=== PATIENT | female | born 2000 | race Hispanic/Latino ===

== ENCOUNTER 2020-03-03 12:38 | Inpatient (IN) | payer MEDICAID, SELFPAY ==
--- NOTE | 2020-03-03 14:16 | RAD REPORT ---
EXAM DESCRIPTION: CT - Head Brain Wo Cont - 03/03/2020 2:11 pm CLINICAL HISTORY: concussion 1 week ago;Seizure COMPARISON: No comparisons TECHNIQUE: Axial 5 mm thick images of the head were obtained without IV contrast. All CT scans are performed using dose optimization technique as appropriate and may include automated exposure control or mA/KV adjustment according to patient size. FINDINGS: No intracranial hemorrhage, mass, edema or shift of mid-line structures. No acute infarcti on changes seen. No abnormal extra-axial fluid collections. Ventricles are normal. Mastoid air cells and visualized portions of the paranasal sinuses are clear. No acute bony findings. IMPRESSION: Negative non-contrast CT head examination.
[2020-03-03 14:30] LABS: Absolute Lymphocytes (CBC) 1.2 K/uL (0.7-4.9); Basophils % 0.7 % (0-1.3); Hematocrit 38.4 % (36.0-45.0); Lymphocytes % 19.2 % (15.3-44.8); MPV 9.2 fL (7.6-11.3); RBC Red Blood Cell Count 4.28 M/uL (3.86-4.86)
[2020-03-03 14:35] LABS: Protime INR 1.12
[2020-03-03] MEDS ORDERED: ACETAMINOPHEN 500 MG TAB ONE (14:42)
[2020-03-03] MEDS ORDERED: NA CHLORIDE 0.9% 1,000 ML ONE (14:43)
[2020-03-03 14:58] LABS: ALT/SGPT 17 U/L (12-78); AST/SGOT 7 U/L (15-37); Albumin 4.5 g/dL (3.4-5.0); Alkaline Phosphatase 69 U/L (45-117); BUN Blood Urea Nitrogen 8 mg/dL (7-18); Bicarbonate 23 mmol/L (21-32); Bilirubin Direct < 0.1 mg/dL (0-0.2); Bilirubin Total 0.3 mg/dL (0.2-1.0); Glucose Level 86 mg/dL (74-106); Potassium 3.7 mmol/L (3.5-5.1); Sodium Level 139 mmol/L (136-145)
[2020-03-03 15:26] LABS: Urine Blood 1+ (NEG); Urine Glucose NEGATIVE (NEG); Urine Protein NEGATIVE (NEG); Urine Specific Gravity >1.030 (1.005-1.030); Urine pH 5.5 (5.0-7.0)
[2020-03-03 15:35] LABS: Barbiturates NEGATIVE (NEGATIVE); Benzodiazepines NEGATIVE (NEGATIVE); Cocaine NEGATIVE (NEGATIVE); METHAMPHETAM NEGATIVE (NEGATIVE); Methadone NEGATIVE (NEGATIVE); Opiates NEGATIVE (NEGATIVE); Phencyclidine NEGATIVE (NEGATIVE); THC Cannibis POSITIVE (NEGATIVE)
[2020-03-03] MEDS ORDERED: ACETAMINOPHEN 500 MG TAB PO PRN (15:45)
[2020-03-03] MEDS ORDERED: LEVETIRACETAM 500 MG/5 ML VIAL IV ONE (16:08)
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
[2020-03-03] MEDS ORDERED: LORazepam 2 MG/ML VIAL ONE (16:32)
[2020-03-03] MEDS ORDERED: levETIRAcetam 1,000 MG in NA CHLORIDE 0.9% 100 ML IV ONE (16:45)
--- NOTE | 2020-03-03 18:29 | RAD REPORT ---
EXAM DESCRIPTION: MRI - Brain Wo Cont - 03/03/2020 6:22 pm CLINICAL HISTORY: seizure COMPARISON: Head Brain Wo Cont dated 03/03/2020 TECHNIQUE: Sagittal T1-weighted images were obtained along with axial PD, heavily T2-weighted and T2 -FLAIR images. Axial DWI and ADC mapping sequences were also obtained along with coronal T1 weighted and heavily T2 weighted images. FINDINGS: No intracranial hemorrhage, mass or acute infarction. There is no edema or shift of midlin e structures. No extra-axial fluid collections. Almeida-matter/white matter junction is preserved. Signa l voids are seen as a normal finding in the major intracranial vessels. No contusion or shear injury findings. No medial temporal lobe asymmetry. Globes and orbital contents within normal limits. Asymmetry of the terminates is a normal variant. Mastoid air cells and paranasal sinuses are clear. IMPRESSION: Negative non-contrast MRI of the Brain.
[2020-03-03 18:30] VITALS: BMI 22.1
[2020-03-03] MEDS: NA CHLORIDE 0.9% 1,000 ML IV SCH (18:44)
[2020-03-03] MEDS: levETIRAcetam 500 MG in NA CHLORIDE 0.9% 100 ML IV SCH (19:54)
[2020-03-04] MEDS: NA CHLORIDE 0.9% 1,000 ML IV SCH ×3 (03:25→22:00)
[2020-03-04 05:44] LABS: Absolute Lymphocytes (CBC) 1.5 K/uL (0.7-4.9); Basophils % 0.8 % (0-1.3); Hematocrit 31.4 % (36.0-45.0); Lymphocytes % 28.8 % (15.3-44.8); MPV 9.1 fL (7.6-11.3); RBC Red Blood Cell Count 3.47 M/uL (3.86-4.86)
[2020-03-04 06:13] LABS: ALT/SGPT 13 U/L (12-78); AST/SGOT 7 U/L (15-37); Albumin 3.3 g/dL (3.4-5.0); Alkaline Phosphatase 51 U/L (45-117); BUN Blood Urea Nitrogen 4 mg/dL (7-18); Bicarbonate 22 mmol/L (21-32); Bilirubin Total 0.2 mg/dL (0.2-1.0); Glucose Level 78 mg/dL (74-106); Magnesium 2.1 mg/dL (1.8-2.4); Phosphorus 3.5 mg/dL (2.5-4.9); Potassium 3.8 mmol/L (3.5-5.1); Protein, Total 6.2 g/dL (6.4-8.2); Sodium Level 143 mmol/L (136-145)
[2020-03-04] MEDS ORDERED: LORazepam 2 MG/ML VIAL IV PRN (08:29)
[2020-03-04 08:54] LABS: Urine Appearance CLEAR; Urine Blood 3+ (NEG); Urine Color YELLOW; Urine Glucose NEGATIVE (NEG); Urine Protein NEGATIVE (NEG); Urine Specific Gravity 1.025 (1.005-1.030)
[2020-03-04 08:58] LABS: Urine Bilirubin NEGATIVE (NEG); Urine Microscopic Reflex ORDER UMIC
[2020-03-04] MEDS ORDERED: POTASSIUM CL SA 10 MEQ TAB PO ONE (09:00)
[2020-03-04 09:21] LABS: Urine Bacteria 20-50 /HPF (<20)
[2020-03-04 09:22] LABS: Urine Culture Reflex Order NOT NEEDED; Urine Mucus 2+ /HPF (NONE SEEN)
[2020-03-04] MEDS: levETIRAcetam 500 MG in NA CHLORIDE 0.9% 100 ML IV SCH ×2 (09:22→21:07)
[2020-03-04 09:27] VITALS: O2SAT 99
[2020-03-04] MEDS: CEFTRIAXONE/SWI 1gm 1 GM/10 ML SYR IV SCH (11:40)
[2020-03-04] MEDS: ONDANSETRON 4 MG/2 ML VIAL IV PRN ×2 (11:41→19:16)
--- NOTE | 2020-03-04 14:22 | PN ---
Date of Progress Note: 03/04/2020 Patient seen and examined. Chart reviewed and case discussed with RN. Patient had 2 episodes of seizures since this morning, 1 episode during my interview. patient became stiff and had rapid jerking movements without a classic crescendo decresendo. no post ictal confusion. Family at the bedside. All questions answered. Medications: List reviewed. Physical Examination: Vital Signs: Temperature 97.3, heart rate 88, blood pressure 120/81, respirations 18, O2 98% on room air. General: Awake, alert, oriented x3, in mild distress, ill-appearing female. CV: S1, S2. Regular rate and rhythm. Peripheral pulses present. Respiratory: Moving air well bilaterally. No wheezing or stridor. No use of accessory muscles. Gastrointestinal: Abdomen is soft, nontender, nondistended. Positive bowel sounds. Extremities: No clubbing, cyanosis, or edema. Neuro: Cranial nerves 2 through 12 intact grossly. No focal neurological deficit. Speech is normal. Skin: No rashes. Normal skin turgor. Laboratory Data: Sodium 142, potassium 3.8, chloride 114, CO2 of 22, BUN 4, creatinine 0.61, glucose 78, calcium 8.1, phosphorus 3.5, magnesium 2.1. CK level is 66. WBC 5.4, H and H 10.8 and 31.4, platelets 168. MRI of the brain negative. No contusion or shear injury finding. Assessment: A 19-year-old female with: 1. New-onset seizure disorder. possibly pseudo seizures given the nature of the episode as witnessed by me. Patient having multiple episodes, was given 1 g of Keppra loading dose, currently on 500 b.i.d. Add Ativan p.r.n. for breakthrough seizures. Continue seizure precautions. Dr. Parikh has been consulted. EEG has been done and patient had episode during EEG. We will follow up on the report. Likely due to head injury versus other. 2. History of concussion. 3. Substance abuse with marijuana, and other synthetic substances; counseled. 4. Acute cystitis with hematuria. We will start on empiric antibiotics. Follow up on cultures. 5. Deep vein thrombosis prophylaxis addressed. Likely discharge in the next 24 to 48 hours depending on clinical response. ADDENDUM: Reviewed EEG w dr. Parikh no epileptiform activity seen. patients episodes are likely pseudoseizures possibly due to secondary gain. consult psych SA/MODL Voice ID: [id number] Report ID: [id number] MTDD
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
[2020-03-05] MEDS: NA CHLORIDE 0.9% 1,000 ML IV SCH ×2 (02:34→08:00)
[2020-03-05 07:51] LABS: BUN Blood Urea Nitrogen 2 mg/dL (7-18); Bicarbonate 24 mmol/L (21-32); Glucose Level 73 mg/dL (74-106); Magnesium 2.1 mg/dL (1.8-2.4); Potassium 3.7 mmol/L (3.5-5.1); Sodium Level 145 mmol/L (136-145)
[2020-03-05] MEDS: levETIRAcetam 500 MG in NA CHLORIDE 0.9% 100 ML IV SCH (08:28)
[2020-03-05] MEDS: ONDANSETRON 4 MG/2 ML VIAL IV PRN (08:29)
[2020-03-05] MEDS: CEFTRIAXONE/SWI 1gm 1 GM/10 ML SYR IV SCH (08:29)
[2020-03-05 10:14] VITALS: BP 113/69; TEMP 98.1
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
[2020-03-05] MEDS ORDERED: POTASSIUM CL SA 10 MEQ TAB PO ONE (11:00)
--- NOTE | 2020-03-05 13:02 | EKG ---
Test Date: 2020-03-03 Test Time: 14:40:01 Manager Of Revenue: CHACHA MEASUREMENT RESULTS: Intervals: Rate: 59 VT: 142 QRSD: 66 QT: 416 QTc: 411 Egan: P: 81 VT: 142 QRS: 88 T: 74 INTERPRETIVE STATEMENTS: Sinus bradycardia with sinus arrhythmia Otherwise normal ECG No previous ECG available for comparison Electronically Signed On 03-05-20 13:01:02 CDT by Eleazar Navarro
--- NOTE | 2020-03-07 11:06 | EEG ---
CHART: [id number] TEST ID#: [id number] DATE OF STUDY: 03/04/2020 THE EEG WAS RECORDED PORTABLE IN THE PATIENT'S ROOM ON A 17 CHANNEL MACHINE. ELECTRODES WERE APPLIED IN THE USUAL MANNER USING THE INTERNATIONAL 10-20 SYSTEM. THE WAKING BACKGROUND RHYTHM IN THIS RECORD CONSISTS OF VERY WELL DEVELOPED AND WELL ORGANIZED WAVES OF 10 HZ., MAXIMAL IN THE POSTERIOR HEAD REGIONS WHICH ATTENUATE NORMALLY WITH EYE OPENING. LOW-VOLTAGE 18-22 HZ ACTIVITY IS EXPRESSED IN THE FRONTAL REGIONS. SHE HAD A WITNESSED SEIZURE-LIKE EVENT WITH NO EPILEPTIFORM ACTIVITY ACCOMPANIED THE EVENT. THERE ARE NO FOCAL OR LATERALIZING FEATURES. NO EPILEPTIFORM ACTIVITY APPEARS. SLEEP OCCURRED NATURALLY. IN ADDITION NORMAL SLEEP PATTERNS ARE PRSENT. HYPERVENTILATION WAS NOT PERFORMED. PHOTIC STIMULATION PRODUCED FAIR DRIVING BILATERALLY. IMPRESSION: NORMAL EEG FOR THE AGE OF THE PATIENT IN [place], DROWSINESS AND SLEEP. NO EPILEPTIFORM ACTIVITY OCCURRED DURING WITNESSED SEIZURE-LIKE EVENT. THEREFORE, THIS EVENT WAS NON-SPECIFIC.
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
== END 2020-03-05 11:05 | disposition home or self-care (01) | DRG 101 ==
LOC: ER 12:38 → ERHOLD 15:47 → 2ND 17:29
PROVIDERS: ADMIT Family Medicine; ATTEND Family Medicine
DX: G40.89 Other seizures (principal); N30.01 Acute cystitis with hematuria; F19.10 Other psychoactive substance abuse, uncomplicated; D64.9 Anemia, unspecified; F12.10 Cannabis abuse, uncomplicated; Z79.899 Other long term (current) drug therapy
CPT/HCPCS: 36415; 70450; 70551; 80048; 80053; 80076; 80307; 80320; 80329; 81003; 81015; 81025; 82550; 83605; 83735; 84100; 84443; 85025; 85610; 85730; 87077; 87086; 87088; 87186; 93005; 94760; 95816; 96374; 96375; 99285; J0696; J1953; J2405; J7030

== ENCOUNTER 2021-08-18 22:25 | Emergency (ER) | payer MEDICAID, SELFPAY ==
[2021-08-18] MEDS ORDERED: NA CHLORIDE 0.9% 1,000 ML ONE (22:54)
[2021-08-18] MEDS ORDERED: ONDANSETRON 4 MG/2 ML VIAL ONE (22:54)
[2021-08-18] MEDS ORDERED: FAMOTIDINE 20 MG/2 ML VIAL IV ONE (22:55)
[2021-08-18 23:17] LABS: Urine Blood Negative (Negative); Urine Glucose Negative (Negative); Urine Protein Trace (Negative); Urine pH 8.5 (5.0-7.0)
[2021-08-18 23:20] LABS: Absolute Lymphocytes (CBC) 1.7 K/uL (0.7-4.9); Basophils % 0.3 % (0-1.3); Hematocrit 36.3 % (36.0-45.0); Lymphocytes % 13.9 % (15.3-44.8); MPV 8.2 fL (7.6-11.3); RBC Red Blood Cell Count 3.83 M/uL (3.86-4.86)
[2021-08-18 23:47] LABS: Urine Amorphous Sediment 3+ /HPF (NONE SEEN); Urine Bacteria >50 /HPF (<20); Urine Mucus 1+ /HPF (NONE SEEN); Urine RBC <5 /HPF (NONE SEEN)
[2021-08-18 23:54] LABS: ALT/SGPT 17 U/L (12-78); AST/SGOT 12 U/L (15-37); Albumin 3.5 g/dL (3.4-5.0); Alkaline Phosphatase 53 U/L (45-117); BUN Blood Urea Nitrogen 4 mg/dL (7-18); Bicarbonate 24 mmol/L (21-32); Bilirubin Direct < 0.1 mg/dL (0-0.2); Bilirubin Total 0.3 mg/dL (0.2-1.0); Glucose Level 90 mg/dL (74-106); HCG, Quantitative 3773 mIU/mL (1-3); Lipase 55 U/L (73-393); Potassium 3.3 mmol/L (3.5-5.1); Protein, Total 7.4 g/dL (6.4-8.2); Sodium Level 140 mmol/L (136-145)
[2021-08-19] MEDS ORDERED: ACETAMINOPHEN 325 MG TABLET ONE (00:51)
[2021-08-19] MEDS ORDERED: POTASSIUM 25 MEQ EFFERV TAB ONE (00:52)
--- NOTE | 2021-08-19 01:23 | EDPHYS ---
Physician Documentation [facility] Name: Joy Alvarez Age: 20 yrs Sex: Female : 2000 Arrival Date: 08/18/2021 Time: 22:28 Bed 7 Private MD: ED Physician Charlie Burdick HPI: 08/18 23:15 This 20 yrs old Female presents to ER via Wheelchair with complaints of Pelvic cp Pain, Back Pain, Vaginal Pain. 23:15 The patient presents to the emergency department with abdominal pain, of the right mid cp abdomen, nausea and vomiting, and is intermittent, described as bilious, back pain. 23:15 The estimated gestational age is 19 weeks. course: care: none, cp Leakage of Fluid: none appreciated, Ultrasound: the patient has not had an ultrasound. Associated signs and symptoms: Pertinent negatives: chest pain, diarrhea, dysuria, fever, ruptured membranes, vaginal bleeding, vaginal discharge, active vomiting. Patient reports due to issues with insurance she has not had any care. Patient reports she is in the process of having her insurance transferred from her mother's plan to her father's plan. 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 - Social history:: Smoking status: Patient denies any tobacco usage or history of. ROS: 23:18 Eyes: Negative for injury, pain, redness, and discharge. cp 23:18 Constitutional: Negative for fever, poor PO intake. 23:18 ENT: Negative for ear pain, sore throat, difficulty swallowing, difficulty handling secretions. 23:18 Cardiovascular: Negative for chest pain, palpitations. 23:18 Respiratory: Negative for cough, shortness of breath, wheezing. 23:18 Abdomen/GI: Positive for abdominal pain, nausea and vomiting, Negative for diarrhea, constipation. 23:18 Back: Negative for radiated pain. 23:18 : Negative for urinary symptoms, vaginal bleeding, vaginal discharge. cp 23:18 Skin: Negative for rash. 23:18 Neuro: Negative for altered mental status, headache, weakness. 23:18 All other systems are negative. cp Exam: 23:25 Constitutional: The patient appears in no acute distress, alert, awake, non-toxic, well cp developed, well nourished. 23:25 Head/Face: Normocephalic, atraumatic. cp 23:25 Eyes: Periorbital structures: appear normal, Conjunctiva: normal, no exudate, no cp injection, Sclera: no appreciated abnormality, Lids and lashes: appear normal, bilaterally. 23:25 ENT: External ear(s): are unremarkable, Nose: is normal, Mouth: Lips: moist, Oral mucosa: moist, Posterior pharynx: Airway: no evidence of obstruction, patent. 23:25 Chest/axilla: Inspection: normal. cp 23:25 Cardiovascular: Rate: normal, Rhythm: regular. 23:25 Respiratory: the patient does not display signs of respiratory distress, Respirations: normal, no use of accessory muscles, no retractions, labored breathing, is not present, Breath sounds: are clear throughout, no decreased breath sounds, no stridor, no wheezing. 23:25 Abdomen/GI: Inspection: abdomen appears normal, Bowel sounds: active, all quadrants, Palpation: soft, in all quadrants, mild abdominal tenderness, in the mid right abdomen, rebound tenderness, is not appreciated, voluntary guarding, is not appreciated, involuntary guarding, is not appreciated. 23:25 Back: CVA tenderness, is absent. 23:25 Neuro: Orientation: to person, place \T\ time. Mentation: is normal. Vital Signs: 22:44 BP 122 / 85; Pulse 83; Resp 16; Temp 98.3(O); Pulse Ox 100% on R/A; Weight 54.43 kg lp1 (R); Height 5 ft. 1 in. (154.94 cm); Pain 7/10; 11 00:31 BP 121 / 80; Pulse 80; Resp 18; Temp 98.8(O); Pulse Ox 100% on R/A; Pain 0/10; kc4 01:34 BP 107 / 72; Pulse 98; Resp 20; Temp 98.7(O); Pulse Ox 100% on R/A; Pain 2/10; kc4 08/18 22:44 Body Mass Index 22.67 (54.43 kg, 154.94 cm) lp1 MDM: 08/18 22:38 Patient medically screened. 23:00 Differential diagnosis: [place], delivery of infant, STD, ectopic . 08/19 01:20 Data reviewed: vital signs, nurses notes, lab test result(s), radiologic studies, cp ultrasound. 01:20 Counseling: I had a detailed discussion with the patient and/or guardian regarding: the cp historical points, exam findings, and any diagnostic results supporting the discharge/admit diagnosis, lab results, radiology results, the need for outpatient follow up, for definitive care, an OB/Gyne specialist, to return to the emergency department if symptoms worsen or persist or if there are any questions or concerns that arise at home. Response to treatment: the patient's symptoms have markedly improved after treatment. Special discussion: Based on the patient's Hx, exam, and Dx evaluation, there is no indication for emergent surgery or inpatient Tx. It is understood by the patient/guardian that if the Sx's persist or worsen they need to return immediately for re-evaluation. 08/18 22:51 Order name: Abo/rh Typing; Complete Time: 23:40 08/18 22:51 Order name: Basic Metabolic Panel; Complete Time: 00:32 08/19 00:32 Interpretation: Normal except: K 3.3; BUN 4; CRE 0.42. 08/18 22:51 Order name: CBC with Diff; Complete Time: 23:40 08/18 23:41 Interpretation: Normal except: WBC 12.40; RBC 3.83; MCV 94.8; MARIELY% 80.3; LYM% 13.9; cp NEUT A 10.0. 08/18 22:51 Order name: Quantitative Hcg; Complete Time: 00:32 08/19 00:33 Interpretation: HCGQ 3773; Reviewed. 08/18 22:51 Order name: Lipase; Complete Time: 00:32 08/18 22:51 Order name: Urine Microscopic Only; Complete Time: 00:32 08/19 00:33 Interpretation: Normal except: UBACT >50; SQEPI 10-20; AMORPH 3+. cp 08/18 22:51 Order name: LFT's; Complete Time: 00:32 cp 08/18 23:17 Order name: Urine Dipstick-Ancillary; Complete Time: 23:40 EDMS 08/18 23:41 Interpretation: Normal except: UKET 4+; UPH 8.5; UPROT Trace; UESTR Trace. 08/18 23:20 Order name: Urine --Ancillary (enter results); Complete Time: 00:32 mw2 08/18 23:48 Order name: Urine Culture EDMS 08/19 00:07 Order name: OB Complete EDMS 08/18 22:51 Order name: IV Saline Lock; Complete Time: 23:17 08/18 22:51 Order name: Labs collected and sent; Complete Time: 23:17 08/18 22:51 Order name: NPO; Complete Time: 23:17 08/18 22:51 Order name: Urine Dipstick-Ancillary (obtain specimen); Complete Time: 23:28 08/18 22:51 Order name: Urine Test (obtain specimen); Complete Time: 23:28 08/18 22:51 Order name: Heart Tones; Complete Time: 01:19 cp Administered Medications: 08/18 23:16 Drug: Zofran (Ondansetron) 4 mg Route: IVP; Site: left antecubital; [facility] 08/19 01:40 Follow up: Response: No adverse reaction [facility] 08/18 23:17 Drug: Pepcid (famotidine) 20 mg Route: IVP; Site: right antecubital; [facility] 08/19 01:40 Follow up: Response: No adverse reaction [facility] 08/18 23:17 Drug: NS 0.9% 1000 ml Route: IV; Rate: 1 bolus; Site: right antecubital; 4 08/19 01:40 Follow up: Response: No adverse reaction 4 00:55 Drug: Tylenol 1000 mg Route: PO; df1 01:40 Follow up: Response: No adverse reaction 4 00:56 Drug: Potassium Effervescent Tablet 50 mEq Route: PO; df1 01:39 Follow up: Response: No adverse reaction 4 Disposition: 01:41 Co-signature as Attending Physician, Charlie Burdick MD. pkl Disposition Summary: 08/19/21 01:22 Discharge Ordered Location: Other cp Problem: new cp Symptoms: have improved cp Condition: Stable cp Diagnosis - Nausea cp - Other specified related conditions, second trimester cp - Abdominal pain, unspecified cp Followup: cp - With: Magdy Pereira MD - When: 1 week - Reason: Recheck today's complaints Discharge Instructions: - Discharge Summary Sheet cp - Abdominal Pain During cp - Nausea and Vomiting, Adult cp Forms: - Medication Reconciliation Form cp - Thank You Letter cp - Antibiotic Education cp - Prescription Opioid Use cp Prescriptions: - Zofran 4 mg Oral Tablet - take 1 tablet by ORAL route every 12 hours As needed; 20 tablet; Refills: 0, cp Product Selection Permitted - Macrobid 100 mg Oral Capsule - take 1 capsule by ORAL route every 12 hours for 7 days; 14 capsule; Refills: 0, cp Product Selection Permitted Signatures: Dispatcher [employer] EDMS Charlie Burdick MD MD pkl Madison Inman RN RN lp1 Cesar Fragoso PA PA cp Temitope Armenta kc4 Kyara Rodriguez df1 Corrections: (The following items were deleted from the chart) 08/18 22:58 22:52 OB Complete+US.RAD.BRZ ordered. EDMS EDMS 08/19 00:07 08/18 22:58 OB Limited ordered. EDMS EDMS
--- NOTE | 2021-08-19 01:23 | ER ---
Nurse's Notes [facility] Name: Joy Alvarez Age: 20 yrs Sex: Female : 2000 Arrival Date: 08/18/2021 Time: 22:28 Bed 7 Private MD: Diagnosis: Nausea;Other specified related conditions, second trimester;Abdominal pain, unspecified Presentation: 08/18 22:44 Chief complaint: Patient states: Right abdominal pain, sharp pelvic pain. low back pain lp1 that began at 0600 today; patient reports about 19 weeks ; Denies any vaginal bleeding, discharge. Coronavirus screen: At this time, the client does not indicate any symptoms associated with coronavirus-19. Ebola Screen: No symptoms or risks identified at this time. Initial Sepsis Screen: Does the patient meet any 2 criteria? No. Patient's initial sepsis screen is negative. Does the patient have a suspected source of infection? No. Patient's initial sepsis screen is negative. Risk Assessment: Do you want to hurt yourself or someone else? Patient reports no desire to harm self or others. Onset of symptoms was August 18, 2021 at 06:00. 22:44 Method Of Arrival: Wheelchair lp1 22:44 Acuity: EMMA 3 lp1 08/19 01:00 Note Cesar Gonzalez from [place] [employer] at bedside with family. 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 - Social history:: Smoking status: Patient denies any tobacco usage or history of. Screenin:47 Abuse screen: Denies threats or abuse. Denies injuries from another. Nutritional lp1 screening: No deficits noted. Tuberculosis screening: No symptoms or risk factors identified. Fall Risk None identified. Assessment: 23:28 General: Appears distressed, uncomfortable, well nourished, Behavior is calm, kc4 cooperative, appropriate for age, Denies fever, feeling ill, fatigue, chills. Pain: Complains of pain in pelvis Pain does not radiate. Pain currently is 5 out of 10 on a pain scale. at worst was 9 out of 10 on a pain scale. level that patient reports is acceptable is 2 out of 10 on a pain scale. Quality of pain is described as aching, crampy, sharp, Pain began 4 hours ago. Is intermittent, Alleviated by. Neuro: Level of Consciousness is Oriented to person, place, time, situation, Appropriate for age Information Consultant are equal bilaterally Moves all extremities. Full function Gait is steady, Speech is normal, Reports. Cardiovascular: No deficits noted. Respiratory: No deficits noted. GI: No deficits noted. No signs and/or symptoms were reported involving the gastrointestinal system. : No deficits noted. No signs and/or symptoms were reported regarding the genitourinary system. : No deficits noted. Urine is cloudy, Reports cramping, lower quadrant(s) pain in suprapubic area. EENT: No deficits noted. No signs and/or symptoms were reported regarding the EENT system. Derm: No deficits noted. No signs and/or symptoms reported regarding the dermatologic system. Musculoskeletal: No deficits noted. No signs and/or symptoms reported regarding the musculoskeletal system. Vital Signs: 22:44 BP 122 / 85; Pulse 83; Resp 16; Temp 98.3(O); Pulse Ox 100% on R/A; Weight 54.43 kg lp1 (R); Height 5 ft. 1 in. (154.94 cm); Pain 7/; 08/19 00:31 BP 121 / 80; Pulse 80; Resp 18; Temp 98.8(O); Pulse Ox 100% on R/A; Pain 0/10; kc4 01:34 BP 107 / 72; Pulse 98; Resp 20; Temp 98.7(O); Pulse Ox 100% on R/A; Pain 2/10; kc4 08/18 22:44 Body Mass Index 22.67 (54.43 kg, 154.94 cm) lp1 Vitals: 00:31 Heart Tones 162. kc4 ED Course: 08/18 22:28 Patient arrived in ED. bp1 22:35 Cesar Fragoso PA is PHCP. cp 22:35 Charlie Burdick MD is Attending Physician. cp 22:42 Kyara Rodriguez is Primary Nurse. df1 22:46 Triage completed. lp1 22:46 Arm band placed on. lp1 23:17 LFT's Sent. kc4 23:17 Lipase Sent. kc4 23:17 Abo/rh Typing Sent. kc4 23:17 Basic Metabolic Panel Sent. kc4 23:17 Inserted saline lock: 20 gauge in right antecubital area, using aseptic technique. df1 23:18 CBC with Diff Sent. kc4 23:18 Quantitative Hcg Sent. kc4 23:28 Urine Microscopic Only Sent. kc4 08/19 00:10 OB Complete In Process Unspecified. EDMS 00:58 No provider procedures requiring assistance completed. df1 00:59 Patient has correct armband on for positive identification. Placed in gown. Bed in low df1 position. Call light in reach. Side rails up X 1. Adult w/ patient. Pulse ox on. NIBP on. 01:19 Urine Culture Sent. df1 01:21 Magdy Pereira MD is Referral Physician. cp 01:38 IV discontinued, intact, bleeding controlled, No redness/swelling at site. Pressure kc4 dressing applied. Administered Medications: 08/18 23:16 Drug: Zofran (Ondansetron) 4 mg Route: IVP; Site: left antecubital; 4 08/19 01:40 Follow up: Response: No adverse reaction [facility] 08/18 23:17 Drug: Pepcid (famotidine) 20 mg Route: IVP; Site: right antecubital; 4 08/19 01:40 Follow up: Response: No adverse reaction 4 08/18 23:17 Drug: NS 0.9% 1000 ml Route: IV; Rate: 1 bolus; Site: right antecubital; 4 08/19 01:40 Follow up: Response: No adverse reaction kc4 00:55 Drug: Tylenol 1000 mg Route: PO; df1 01:40 Follow up: Response: No adverse reaction kc4 00:56 Drug: Potassium Effervescent Tablet 50 mEq Route: PO; df1 01:39 Follow up: Response: No adverse reaction kc4 Outcome: 01:22 Discharge ordered by MD. maza 01:34 Discharged to JOS[facility] LUIS Fragoso notified pt that upon discharge she needs to go to L\T\D to be kc4 assessed 01:34 Condition: stable 01:34 Discharge instructions given to patient, significant other, Instructed on instructed to follow up with L\T\D upstairs when discharged. Demonstrated understanding of instructions, follow-up care, medications, Prescriptions given X 2. 01:41 Patient left the ED. kc4 Signatures: Dispatcher [employer] EDMS Madison Inman, RN RN lp1 Cesar Fragoso PA PA cp [place], Brittany bp1 Chuman, Kourtney kc4 Kyara Rodriguez df1
[2021-08-19 01:47] VITALS: O2SAT 100
[2021-08-19 01:50] VITALS: BP 107/72; TEMP 98.7
--- NOTE | 2021-08-19 20:07 | RAD REPORT ---
EXAM DESCRIPTION: US - OB Complete - 08/19/2021 12:04 am CLINICAL HISTORY: 20 years Female with acute right-sided pain LMP: 03/21/2021, EGA: 21 weeks 3 days, JOBY: 12/26/2021 TECHNIQUE: Transabdominal ultrasound imaging was performed through the gravid uterus. This study was performed on 08/18/2021 at 11:22 PM COMPARISON: No prior studies were available for comparison. FINDINGS: ANATOMIC EVALUATION FETUS single POSITION transverse lie HEART RATE 133 bpm AMNIOTIC FLUID not measured PLACENTA LOCATION posterior placenta that appears to wrap around anteriorly PREVIA none GRADE 1 ANATOMY IDENTIFIED: Nose, lips arms, legs, bladder, three-vessel cord, stomach, kidneys, four-chamber heart, cerebellum, orbits, spine. There appears to be a crescentic area of decreased echogenicity po sterior to the placenta which could reflect a retroplacental hematoma. MATERNAL ADNEXA: Questionable dilated tubular structure in the right adnexal region which could repre sent a dilated fallopian tube. There also appear to be prominent periuterine veins in this location MEASUREMENTS BPD: . 5.3 cm corresponding to 22 weeks, 0 days. HC: 19.8 cm corresponding to 21 weeks, 6 days. AC: 17.79 cm corresponding to 22 weeks, 4 days. FL: 3.78 cm corresponding to 22 weeks, 0 days. CER: 2.85 cm, closed FL/AC: 21.28 FL/HC: 19.11 FL/BPD: 71.38 HC/AC: 1.11 CI: Not provided EFW: 498 grams (87th percentile) CLINICAL DATES LMP 03/21/2021 [place] 21 weeks 3 days EDC 12/26/[address] DATES BY [address] [place] 21 weeks 3 days EDC 12/26/2021 IMPRESSION: 1. Single living intrauterine with an estimated ultrasound age of 21 weeks, 3 days with an estimated due date of 12/26/2021. These dates correspond with the estimated clinical gest ational age. 2. The placenta is posterior in location without evidence of placenta previa. The placenta appears to wrap around anteriorly. Additionally, there is a crescentic area of decreased echogenicity posterior to the placenta which could represent a retroplacental hematoma. 3. The anatomic ratios are within normal limits. 4. Questionable right-sided dilated fallopian tube and prominent right-sided periuterine veins. Electronically signed by: Massiel Powell DO 08/19/2021 12:57 AM PEER SPECIALIST Due to temporary technical issues with the PACS/Fluency reporting system, reports are being signed by the in house radiologists without review as a courtesy to insure prompt reporting. The interpreting radiologist is fully responsible for the content of the report. .
--- OUTSIDE RECORDS SUMMARY | 2021-08-19 23:27 | XMS REPORT | Continuity of Care Document ---
:2000 Author Organization [facility] t Address [address] [place] [address] Care Team Providers Name Role Phone FAITH HEATON Primary Care Physician Unavailable Demetria Leonard Attending Clinician Ariana SHAY Attending Clinician Unavailable SHAUNA SNYDER Attending Clinician Unavailable MEENA Attending Clinician Unavailable Payers Payer Name Policy Type Policy Number Effective Date Expiration Date Rocio davila MEDICAID COMM [id number] 2015 HEALTH CHOICE 00:00:00 Advance Directives Directive Decision Effective Termination Comments Source Date Date Healthcare Agents on N/A [facility] Agent Medical RelationshipCommunicationHilario Branch EstradaFatherHealth Care [phone] (Home)Estefanía PerryStep ParentFirst Alternate Health Care [phone] (Home)Silvano ConcepcionLife PartnerSecond Alternate Health Care [phone] (Home) Problems Condition Condition Condition Status Onset Resolution Last Treating Co mments Source Name Details Category Date Date Treatment Clinician Date Well woman Well woman Disease Active 0 U nivers exam exam 6-03 ity of without without 00:00: [place] gynecologi gynecologi 00 Me dical marco exam marco exam Branch Disease Active 0 U nivers anemia anemia 5-18 ity of 00:00: [place] [facility] Branch Counseling Counseling Disease Active U nivers on health on health 3-20 [place] 00 Medical disease disease Branch prevention prevention Maternal Maternal Disease Active 2016-10 Overview: Un nahid varicella, varicella, 2-01 Formattin ity of non-immune non-immune 00:00: g of this note Medical might be Branch different from the original. Address in PP. Allergies, Adverse Reactions, Alerts Allergy Allergy Status Severity Reaction(s) Onset Inactive Treating Comm ents Source Name Type Date Date Clinician NO KNOWN Drug Active Univers ALLERGIE Class ity of S [facility] NO KNOWN Allergy Active [facility] ALLERGIE S Social History Social Habit Start Date Stop Date Quantity Comments Source Alcohol intake 2018-02-21 2018-02-21 Current University of 00:00:00 00:00:00 non-drinker of [facility] alcohol Branch (finding) Tobacco use and 2017-09-05 2017-09-05 Never used Universit y of exposure 00:00:00 00:00:00 [facility] Sex Assigned At 2000 2000 Universit y of 00:00:00 00:00:00 [facility] Smoking Status Start Date Stop Date Source Never smoker [facility] Branch Medications Ordered Filled Start Stop Current Ordering Indication Dosage Frequency Signature Comments Components Source Medication Medication Date Date Medication? Clinician (SIG) Name Name Yes 1{tbl} Take 1 Unive rs VIT 5-18 tablet by ity of CALC,IRON,F 10:49: mouth [place] OLIC 04 daily. Medical ( Branch VITAMIN ORAL) ascorbic Yes [id number] 500mg Take 1 U nivers acid, 4-02 tablet by ity of vitamin C, [place]:00[place] 00 (three) Medical tablet times Branch daily. ferrous Yes [id number] 325mg Take 1 Un nahid sulfate 325 4-02 tablet by ity of mg (65 mg 00:00: mouth 3 [place] iron) 00 (three) Medical tablet times Branch daily with meals. OFF DEEP Yes [id number] Univ ers KONG DRY 3-20 ity of 25 % AerP 00:00: [place] [facility] Branch Immunizations Ordered Filled Immunization Date Status Comments Sourc e Immunization Name Name TDAP 2017-11-07 Completed University 00:00:00 [facility] Influenza Virus 2017-09-05 [facility]+ 00:00:00 [facility] Vital Signs Vital Name Observation Time Observation Value Comments Source HEIGHT 2021-04-30 13:39:00 154.9 cm WEIGHT 2021-04-30 13:39:00 58.968 kg HEIGHT 2021-04-30 13:39:00 154.9 cm WEIGHT 2021-04-30 13:39:00 58.968 kg Procedures This patient has no known procedures. 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 [id number] Univers 08:45:00 08:45:00 [id number] [facility] 2021-06-29 2021-06-29 Outpatient [facility] [id number] Univers 08:45:00 08:45:00 DEMETRIA [facility] 2021-06-23 2021-06-[address] [facility] [id number] Univers 14:00:00 14:00:00 [id number] [facility] 2021-04-30 2021-04-30 Emergency ER [facility] Emergency [id number] [facility] 13:35:00 13:35:00 Results Test Description Test Time Test Comments Results Result Comments Source HCG, QUANTITATIVE, 2021-04-30 17:50:00 Test Item Value Reference Range Interpretation Comme nts GONADOTROPIN, CHORIONIC (HCG) QUANT (BEAKER) (test code = 64 9) 63446 mIU/mL 0-10 H Non- Females: <10 mIU/mL Females: Gestation Age Reference Range(mIU/mL) 0.2-1 Week 5-50 1-2 Weeks 50-500 2-3 Weeks 100-5,000 3-4Weeks 500-10,000 4-5 Weeks 1,000-50,000 5-6 Weeks 10,000-100,000 6-8 Weeks 15,000-200,000 2-3 Months 10,000-100,000 Conveyor Maintenance Mechanic ID - [id number] ID - [id number] METABOLIC [id number] 14:41:00 Test Item Value Reference Range Interpretation Comments TOTAL PROTEIN 6.9 gm/dL 6.0-8.5 (BEAKER) (test code = 770) ALBUMIN (BEAKER) 4.0 g/dL 3.5-5.0 (test code = 1145) ALKALINE PHOSPHATASE 57 U/L 30-115 (BEAKER) (test code = 346) BILIRUBIN TOTAL 0.3 mg/dL 0.1-1.2 (BEAKER) (test code = 377) SODIUM (BEAKER) (test 138 meq/L 135-148 code = 381) POTASSIUM (BEAKER) 4.1 meq/L 3.6-5.5 (test code = 379) CHLORIDE (BEAKER) 103 meq/L 98-106 (test code = 382) CO2 (BEAKER) (test 25 meq/L 24-32 code = 355) BLOOD UREA NITROGEN 4 mg/dL 10-26 L (BEAKER) (test code = 354) CREATININE (BEAKER) 0.41 mg/dL 0.50-1.20 L (test code = 358) GLUCOSE RANDOM 91 mg/dL 70-110 (BEAKER) (test code = 652) CALCIUM (BEAKER) 9.5 mg/dL 8.5-10.5 (test code = 697) AST (SGOT) (BEAKER) 14 U/L 5-40 (test code = 353) ALT (SGPT) (BEAKER) 12 U/L 5-50 (test code = 347) EGFR (BEAKER) (test 198 ESTIMATE D GFR IS code = 1092) mL/min/1.73 sq NOT ACCURA TE m CREATININE CLEARANCE IN PREDICTING GLOMERULAR FILTRATION RATE . ESTIMATED GFR I S NOT APPLICABLE FOR DIALYSIS PATIEN TS. CBC W/PLT COUNT & AUTO [id number] 14:19:00 Test Item Value Reference Range Interpretation Comments WHITE BLOOD CELL COUNT (BEAKER) 9.3 K/ L 4.0-10.0 (test code = 775) RED BLOOD CELL COUNT (BEAKER) 3.47 M/ L 4.00-5.00 L (test code = 761) HEMOGLOBIN (BEAKER) (test code = 10.9 GM/DL 12.0-15.0 L 410) HEMATOCRIT (BEAKER) (test code = 31.7 % 36.0-45.0 L 411) MEAN CORPUSCULAR VOLUME (BEAKER) 91.4 fL 82.0-99.0 (test code = 753) MEAN CORPUSCULAR HEMOGLOBIN 31.4 pg 27.0-33.0 (BEAKER) (test code = 751) MEAN CORPUSCULAR HEMOGLOBIN CONC 34.4 GM/DL 32.0-36.0 (BEAKER) (test code = 752) RED CELL DISTRIBUTION WIDTH 13.2 % 12.0-15.0 (BEAKER) (test code = 412) PLATELET COUNT (BEAKER) (test 295 K/CU MM 150-430 code = 756) MEAN PLATELET VOLUME (BEAKER) 9.6 fL 6.5-11.5 (test code = 754) NUCLEATED RED BLOOD CELLS 0 /100 WBC 0-0 (BEAKER) (test code = 413) NEUTROPHILS RELATIVE PERCENT 75 % (BEAKER) (test code = 429) LYMPHOCYTES RELATIVE PERCENT 18 % (BEAKER) (test code = 430) MONOCYTES RELATIVE PERCENT 6 % (BEAKER) (test code = 431) EOSINOPHILS RELATIVE PERCENT 1 % (BEAKER) (test code = 432) BASOPHILS RELATIVE PERCENT 0 % (BEAKER) (test code = 437) NEUTROPHILS ABSOLUTE COUNT 6.93 K/ L 1.80-8.00 (BEAKER) (test code = 670) LYMPHOCYTES ABSOLUTE COUNT 1.64 K/ L 1.48-4.50 (BEAKER) (test code = 414) MONOCYTES ABSOLUTE COUNT (BEAKER) 0.53 K/ L 0.00-1.30 (test code = 415) EOSINOPHILS ABSOLUTE COUNT 0.11 K/ L 0.00-0.50 (BEAKER) (test code = 416) BASOPHILS ABSOLUTE COUNT (BEAKER) 0.03 K/ L 0.00-0.20 (test code = 417) IMMATURE GRANULOCYTES-RELATIVE 0 % 0-0 PERCENT (BEAKER) (test code = 2801) URINALYSIS W/ [id number] 14:09:00 Test Item Value Reference Range Interpretation Comments COLOR (BEAKER) (test code = 470) Yellow CLARITY (BEAKER) (test code = 469) Clear SPECIFIC GRAVITY UA (BEAKER) (test 1.020 1.001-1.035 code = 468) PH UA (BEAKER) (test code = 467) 7.5 5.0-8.0 PROTEIN UA (BEAKER) (test code = Negative Negative 464) GLUCOSE UA (BEAKER) (test code = Negative Negative 365) KETONES UA (BEAKER) (test code = Negative Negative 371) BILIRUBIN UA (BEAKER) (test code = Negative Negative 462) BLOOD UA (BEAKER) (test code = 461) Negative Negative NITRITE UA (BEAKER) (test code = Negative Negative 465) LEUKOCYTE ESTERASE UA (BEAKER) Negative Negative (test code = 466) UROBILINOGEN UA (BEAKER) (test code 0.2 mg/dL 0.2-1.0 = 463) BACTERIA (BEAKER) (test code = 517) Rare RBC UA-MANUAL (BEAKER) (test code = <5 /HPF 1659) WBC UA-MANUAL (BEAKER) (test code = <5 /HPF 1661) SQUAMOUS EPITHELIAL MANUAL (BEAKER) <5 /HPF (test code = 1663) SOURCE(BEAKER) (test code = 2795) SCREEN, [id number] 13:50:00 Test Item Value Reference Range Interpretation Comments TEST URINE (BEAKER) (test Positive code = 583) U/S, , FIRST [id number] 14:49:00Reason for exam:->Vaginal Bleeding and/OR pelvic painShould this be performed at the bedside?->NoFINAL REPORT INDICATION:16-year-old female with vaginal bleeding andnausea and vomiting for four days. Last menstrual period April 09, 2017. COMPARISON: None. TECHNIQUE: Pelvic ultrasound exam, first trimester.Pelvic ultrasound exam, with use of endovaginal probe. FINDINGS: In the uterine cavity there is a gestational sac with a yolk sac and pole within it. The pole measures 0.67 cm in length which corresponds to an estimated gestational age of sixweeks and four days. heart beat was detected and measured 129 bpm. No subchorionic hemorrhage is demonstrated. There is questionable septated uterus versus bicornuate uterus with the gestationalsac on the right side. Overall the uterus measures 7.3 x 7.3 x 4.7 cm. The left ovary measures 3.0 x2.0 x 1.7 cm. The right ovary was not visualized. There is a small amount of free fluid in the cul-de-sac. IMPRESSION:Single viable intrauterine with estimated gestational age of six weeks and four days. Signed: Justyn Weisseport Verified Date/Time: 06/19/2017 14:49:12 Reading Location: [facility] Diagnostic Imaging Reading Room - [place] [address] U/S, ENDOVAGINAL, PREG [id number] 14:49:00 Reason for exam:->Vaginal Bleeding and/OR pelvic pain Should this be performed at the bedside?->NoFINAL REPORT INDICATION:16-year-old female with vaginal bleeding andnausea and vomiting for four days. Last menstrual period April 09, 2017. COMPARISON: None. TECHNIQUE: Pelvic ultrasound exam, first trimester.Pelvic ultrasound exam, with use of endovaginal probe. FINDINGS: In the uterine cavity there is a gestational sac with a yolk sac and pole within it. The pole measures 0.67 cm in length which corresponds to an estimated gestational age of sixweeks and four days. heart beat was detected and measured 129 bpm. No subchorionic hemorrhage is demonstrated. There is questionable septated uterus versus bicornuate uterus with the gestationalsac on the right side. Overall the uterus measures 7.3 x 7.3 x 4.7 cm. The left ovary measures 3.0 x2.0 x 1.7 cm. The right ovary was not visualized. There is a small amount of free fluid in the cul-de-sac. IMPRESSION:Single viable intrauterine with estimated gestational age of six weeks and four days. Signed: Justyn Weisseport Verified Date/Time: 06/19/2017 14:49:12 Reading Location: [facility] Diagnostic Imaging Reading Room - [place] [address] HCG, QUANTITATIVE, [id number] 13:33:00 Test Item Value Reference Range Interpretation Comments GONADOTROPIN, CHORIONIC (HCG) 56945 mIU/mL 0-10 H QUANT (BEAKER) (test code = 649) Non- Females: <10 mIU/mL Females: Gestation Age Reference Range(mIU/mL) 0.2-1 Week 5-50 1-2 Weeks 50-500 2-3 Weeks 100-5,000 3-4Weeks 500-10,000 4-5 Weeks 1,000-50,000 5-6 Weeks 10,000-100,000 6-8 Weeks 15,000-200,000 2-3 Months 10,000-100,000BASIC METABOLIC PANEL 2017-06-19 13:09:00 Test Item Value Reference Range Interpretation Comments SODIUM (BEAKER) 137 meq/L 135-148 (test code = 381) POTASSIUM (BEAKER) 3.8 meq/L 3.5-5.5 (test code = 379) CHLORIDE (BEAKER) 104 meq/L 98-106 (test code = 382) CO2 (BEAKER) (test 24 meq/L 20-31 code = 355) BLOOD UREA NITROGEN 6 mg/dL 10-26 L (BEAKER) (test code = 354) CREATININE (BEAKER) 0.63 mg/dL 0.50-1.20 (test code = 358) GLUCOSE RANDOM 88 mg/dL 70-110 (BEAKER) (test code = 652) CALCIUM (BEAKER) 10.3 mg/dL 8.5-10.5 (test code = 697) EGFR (BEAKER) (test mL/min/1.73 sq ESTIM ATED GFR NOT code = 1092) m VALIDATED FOR A GE <18 YEARS. HEPATIC FUNCTION [id number] 13:07:00 Test Item Value Reference Range Interpretation Comments TOTAL PROTEIN (BEAKER) (test code = 8.1 gm/dL 6.0-8.5 770) ALBUMIN (BEAKER) (test code = 1145) 4.8 g/dL 3.5-5.0 BILIRUBIN TOTAL (BEAKER) (test code 0.5 mg/dL 0.1-1.3 = 377) BILIRUBIN DIRECT (BEAKER) (test 0.2 mg/dL 0.0-0.5 code = 706) ALKALINE PHOSPHATASE (BEAKER) (test 63 U/L 100-320 L code = 346) AST (SGOT) (BEAKER) (test code = 14 U/L 5-40 353) ALT (SGPT) (BEAKER) (test code = 11 U/L 6-50 347) URINALYSIS W/ [id number] 12:59:00 Test Item Value Reference Range Interpretation Comments COLOR (BEAKER) (test code = 470) Yellow CLARITY (BEAKER) (test code = 469) Hazy SPECIFIC GRAVITY UA (BEAKER) (test 1.015 1.001-1.035 code = 468) PH UA (BEAKER) (test code = 467) 7.0 5.0-8.0 PROTEIN UA (BEAKER) (test code = Negative Negative 464) GLUCOSE UA (BEAKER) (test code = Negative Negative 365) KETONES UA (BEAKER) (test code = Negative Negative 371) BILIRUBIN UA (BEAKER) (test code = Negative Negative 462) BLOOD UA (BEAKER) (test code = 461) Negative Negative NITRITE UA (BEAKER) (test code = Negative Negative 465) LEUKOCYTE ESTERASE UA (BEAKER) (test Negative Negative code = 466) UROBILINOGEN UA (BEAKER) (test code < mg/dL 0.2-1.0 = 463) RBC UA (BEAKER) (test code = 519) 3 /HPF WBC UA (BEAKER) (test code = 520) 5 /HPF BACTERIA (BEAKER) (test code = 517) Rare MUCUS (BEAKER) (test code = 1574) Moderate SQUAMOUS EPITHELIAL (BEAKER) (test 3 /HPF code = 516) SOURCE(BEAKER) (test code = 2795) SCREEN, [id number] 12:55:00 Test Item Value Reference Range Interpretation Comments TEST URINE (BEAKER) (test Positive code = 583) CBC W/PLT COUNT & AUTO [id number] 12:44:00 Test Item Value Reference Range Interpretation Comments WHITE BLOOD CELL COUNT (BEAKER) 11.1 K/ L 4.5-13.5 (test code = 775) RED BLOOD CELL COUNT (BEAKER) 4.25 M/ L 4.00-5.00 (test code = 761) HEMOGLOBIN (BEAKER) (test code = 13.1 GM/DL 12.0-15.0 410) HEMATOCRIT (BEAKER) (test code = 39.6 % 36.0-45.0 411) MEAN CORPUSCULAR VOLUME (BEAKER) 93.0 fL 82.0-99.0 (test code = 753) MEAN CORPUSCULAR HEMOGLOBIN 30.9 pg 27.0-33.0 (BEAKER) (test code = 751) MEAN CORPUSCULAR HEMOGLOBIN CONC 33.2 GM/DL 32.0-36.0 (BEAKER) (test code = 752) RED CELL DISTRIBUTION WIDTH 13.1 % 12.0-15.0 (BEAKER) (test code = 412) PLATELET COUNT (BEAKER) (test 312 K/CU MM 150-430 code = 756) MEAN PLATELET VOLUME (BEAKER) 8.3 fL 6.5-10.5 (test code = 754) NUCLEATED RED BLOOD CELLS 0 /100 WBC 0-0 (BEAKER) (test code = 413) NEUTROPHILS RELATIVE PERCENT 80 % (BEAKER) (test code = 429) LYMPHOCYTES RELATIVE PERCENT 14 % (BEAKER) (test code = 430) MONOCYTES RELATIVE PERCENT 5 % (BEAKER) (test code = 431) EOSINOPHILS RELATIVE PERCENT 1 % (BEAKER) (test code = 432) BASOPHILS RELATIVE PERCENT 0 % (BEAKER) (test code = 437) NEUTROPHILS ABSOLUTE COUNT 8.90 K/ L 1.50-10.30 (BEAKER) (test code = 670) LYMPHOCYTES ABSOLUTE COUNT 1.60 K/ L 0.70-7.40 (BEAKER) (test code = 414) MONOCYTES ABSOLUTE COUNT (BEAKER) 0.50 K/ L 0.00-0.50 (test code = 415) EOSINOPHILS ABSOLUTE COUNT 0.10 K/ L 0.00-0.40 (BEAKER) (test code = 416) BASOPHILS ABSOLUTE COUNT (BEAKER) 0.00 K/ L 0.00-0.10 (test code = 417)
== END 2021-08-19 01:41 | disposition home or self-care (01) ==
LOC: ER 22:25
DX: O26.892 Other specified pregnancy related conditions, second trimester (principal); R11.0 Nausea; R10.9 Unspecified abdominal pain
CPT/HCPCS: 36415; 76805; 80048; 80076; 81003; 81015; 81025; 83690; 84702; 85025; 86900; 86901; 87086; 87088; 99284; J2405; J7030